=== PATIENT | female | born 1995 | race African-American/Black ===

== ENCOUNTER 2018-10-01 19:41 | Emergency (ER) | payer OTHER ==
[~2018-10-01] VITALS: Ht 152.4 cm; Wt 59.0 kg
[~2018-10-01 19:41] MED LIST: ALBU2TAB PO; ALBU8.5H6 INH; HYDR-2761 PO
[2018-10-01] MEDS ORDERED: KETOROLAC 30 MG/ML VIAL. IV ONE (20:30)
[2018-10-01] MEDS ORDERED: FAMOTIDINE 20 MG/2 ML VIAL IVP ONE (20:30)
[2018-10-01] MEDS ORDERED: ONDANSETRON PF 4 MG/2 ML VIAL. IV ONE (20:30)
[2018-10-01] MEDS ORDERED: IV NORMAL SALINE 1000ML BAG 1,000 ML IV ONE (20:30)
[2018-10-01 20:33] VITALS: BP 144/84
[2018-10-01] MEDS ORDERED: ORPH100T PO (20:47)
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
[2018-10-01] MEDS ORDERED: KETOROLAC 30 MG/ML VIAL. IM ONE (21:00)
== END 2018-10-01 21:20 | disposition home or self-care (01) ==
LOC: ER 19:41
DX: S06.0X0A Concussion without loss of consciousness, initial encounter (principal); S39.012A Strain of muscle, fascia and tendon of lower back, initial encounter; S29.012A Strain of muscle and tendon of back wall of thorax, initial encounter; S00.83XA Contusion of other part of head, initial encounter; J45.909 Unspecified asthma, uncomplicated; Z91.018 Allergy to other foods; Z91.013 Allergy to seafood; V43.52XA Car driver injured in collision with other type car in traffic accident, initial encounter; Y93.89 Activity, other specified; Y92.410 Unspecified street and highway as the place of occurrence of the external cause; Y99.8 Other external cause status
CPT/HCPCS: 81025; 96372; 99283; J1885

== ENCOUNTER → 2021-05-31 | Outpatient (CLI) | payer OTHER ==
[~2021-05-31] MED LIST changes: +ORPH100T PO
--- NOTE | 2021-05-31 12:49 | RAD ---
XR LUMBAR SPINE 2-3V DATE: 05/31/2021 12:17 PM INDICATION: Reason: LOW BACK PAIN. / Spl. Instructions: / History: COMPARISON: None. FINDINGS: Five non-rib bearing lumbar-type vertebral bodies are present. Bones/Alignment: No evidence of acute compression fracture. There is no listhesis. Joints: There is no disc space loss. Miscellaneous: None. IMPRESSION: No osseous abnormalities. Electronically signed by: Parth Woodard MD (05/31/2021 12:47 PM) [id number]
== END ==
LOC: RAD 11:33
PROVIDERS: ATTEND Family Medicine
DX: Z02.71 Encounter for disability determination (principal); M54.50 Low back pain, unspecified
CPT/HCPCS: 72100